=== PATIENT | female | born 1960 | race Caucasian/White ===

== ENCOUNTER 2016-10-26 13:54 | Emergency (ER) | payer OTHER ==
[~2016-10-26] VITALS: Ht 160 cm; Wt 72.6 kg
--- NOTE | 2016-10-26 14:45 | ED AMS/SEIZURE/WEAK/DIZZY ---
History of Present Illness General Chief Complaint: General Adult Stated Complaint: DIZZY, TIRED, PALPATATION EARLIER TODAY, X 1 DAY Source: patient Exam Limitations: no limitations Vital Signs & Intake/Output Vital Signs & Intake/Output Vital Signs Date Time Temp Pulse Resp B/P B/P Pulse O2 O2 Flow FiO2 Mean Ox Delivery Rate 10/26 1913 60 18 124/58 97 Room Air 10/26 1640 97.0 50 16 110/60 98 Room Air 10/26 1501 56 10/26 1500 97 Room Air 10/26 1407 98.6 76 18 114/73 98 Room Air ED Intake and Output 10/27 0000 10/26 1200 Intake Total Output Total Balance Patient 160 lb Weight Weight Reported by Patient Measurement Method Allergies Coded Allergies: Sulfa (Sulfonamide Antibiotics) (RASH 10/26/16) Reconcile Medications Pravastatin Sodium 20 MG TABLET 1 TAB PO DAILY CHOLESTEROL (Reported) Triage Note: 56 YO FEMALE TO TRIAGE C/O FEELING TIRED AND FEELING PALPITATIONS ON/OFF TODAY. DENIES CHEST PAIN. DENIES SOB. STATES SHE ALSO WAS FEELING LIGHTHEADED. Triage Nurses Notes Reviewed? yes Onset: Abrupt Duration: hour(s):, intermittent Timing: recent history Injury Environment: home Severity: mild, moderate No Modifying Factors: none HPI: 56-year-old female comes into emergency room with complaints of lightheaded and dizziness earlier today and some numbness and tingling in her hands bilaterally. Patient reports that when she lied down she felt like her heart was skipping a beat. Some mild chest tightness but denies any actual pain or shortness of breath. Patient reports that she was started on cholesterol medication a couple months ago. Denies headache. Denies vomiting. Denies any fever chills. (VERO LUNA) Past History Travel History Traveled to [place] past 21 day No Medical History Any Pertinent Medical History? 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 No (VERO LUNA) Review of Systems Review of Systems Constitutional: Reports: see HPI. EENTM: Reports: no symptoms. Respiratory: Reports: no symptoms. Cardiovascular: Reports: see HPI. GI: Reports: no symptoms. Genitourinary: Reports: no symptoms. Musculoskeletal: Reports: no symptoms. Skin: Reports: no symptoms. Neurological/Psychological: Reports: no symptoms. Hematologic/Endocrine: Reports: no symptoms. Immunologic/Allergic: Reports: no symptoms. All Other Systems: Reviewed and Negative (VERO LUNA) Physical Exam Physical Exam General Appearance: well developed/nourished, no apparent distress, alert Head: atraumatic, normal appearance Eyes: Bilateral: normal appearance, EOMI. 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 Yes CVA/TIA Diagnosis: No Severe Sepsis Present: No Septic Shock Present: No All Positive = PERC Ruled Out: Positive: heart rate < 100 bpm, O2 sat > 94%, no hemoptysis, no hormone use, no prior DVT or PE, no unilateral leg swellin, no surgery/trauma w/in 4w. Wells Criteria Score: 0 (VERO LUNA) Progress Differential Diagnosis: arrythmia, alcohol intoxication, anemia, benign positional vertigo, CVA/stroke, dehydration, drug intoxication, electrolyte imbalance, GI bleed, hypoglycemia, intracranial Hem., intracranial mass/tumor, labrynthitis, postural hypotension, sepsis, subarachnoid Hem. Plan of Care: Orders Procedure Date/time Status TROPONIN LEVEL 10/26 1900 Complete EKG 10/26 1900 Active Telemetry/911 Emergency Services Dispatcher 10/26 1445 Active TROPONIN LEVEL 10/26 1445 Complete COMPREHENSIVE METABOLIC PANEL 10/26 1445 Complete CBC WITHOUT DIFFERENTIAL 10/26 1445 Complete EKG 10/26 1417 Active Laboratory Tests 10/26/16 1905: Troponin I < 0.01 10/26/16 1455: Anion Gap 8, Estimated GFR > 60, BUN/Creatinine Ratio 18.6, Glucose 88, Calcium 9.3, Total Bilirubin 0.4, AST 20, ALT 37, Alkaline Phosphatase 76, Troponin I < 0.01, Total Protein 6.6, Albumin 4.1, Globulin 2.5, Albumin/Globulin Ratio 1.6, CBC w Diff NO MAN DIFF REQ, RBC 4.38, MCV 95.3, MCH 32.0 H, RDW 13.0, MPV 7.1 L, Gran % 58.3, Lymphocytes % 31.8, Monocytes % 6.3, Eosinophils % 3.0, Basophils % 0.6, Absolute Granulocytes 3.4, Absolute Lymphocytes 1.9, Absolute Monocytes 0.4, Absolute Eosinophils 0.2, Absolute Basophils 0, PUBS MCHC 33.6 Initial ED EKG: normal intervals, normal p-waves, normal sinus rhythm, rate (56) Repeat EKG: unchanged (VERO LUNA) Departure Departure Disposition: HOME OR SELF CARE Condition: Stable Clinical Impression Primary Impression: Atypical chest pain Secondary Impressions: Lightheadedness Referrals: PATIENT HAS NO PRIMARY CARE DR (PCP/Family) DAISY SCHMIDT PhD,LEXY Gar Additional Instructions: Follow-up with your primary care doctor. Return if any concerns worsening symptoms. Follow-up with etcher aircraft provided. Please go over all results of today's visit with your primary care doctor. Contact your primary care doctor to let them know you were here in the emergency room. There may be nonspecific findings which may not be related to your visit today here in the emergency room but may require further evaluation and chronic monitoring by your primary care doctor. If you had a laceration today the chance of foreign body always remains. You should follow-up with your primary care doctor for recheck in 3-5 days for a wound check. If you had an x-ray done there is a chance that a fracture could have been missed on initial read and you should follow-up with your primary care doctor for repeat x-rays if symptoms persist. If your blood pressure was elevated here in the emergency room please have rechecked by her primary care doctor within the next 48 hours by your primary care doctor. If you were prescribed a narcotic here in the emergency room or any type of controlled substances you're not allowed to drive while taking this medication or operate any type of heavy machinery. Narcotics can make you feel lightheaded dizziness nausea and can cause constipation. You may need to chart picker a stool softener. Thank you for choosing [facility] emergency room. Please return to the emergency room immediately if you have any other concerns worsening of symptoms. Departure Forms: Customer Survey General Discharge Information Comments 10/26/2016 8:16:15 PM Patient clinically looks well. In no apparent distress. Reevaluated multiple times. Patient continues to remain asymptomatic at this time. Repeat EKG unchanged and second troponin negative. Patient referred to etcher aircraft as well as primary care doctor. Return to the emergency room immediately if any other concerns worsening symptoms. Patient understands and agrees with plan of care. Symptoms are unclear at this time. Case discussed with Dr. Rose. No suspicion for pulmonary embolism. Low probability was criteria. (SIMONE HALL,VERO) PA/MUSHROOM GROWER Co-Sign Statement Statement: ED Attending supervision documentation- [] I saw and evaluated the patient. I have also reviewed all the pertinent lab results and diagnostic results. I agree with the findings and the plan of care as documented in the PA's/MUSHROOM GROWER's documentation. [X] I have reviewed the ED Record and agree with the PA's/MUSHROOM GROWER's documentation. [] Additions or exceptions (if any) to the PAs/MUSHROOM GROWER's note and plan are summarized below: [] (CINDY SCHMIDT,RADHA Harris)
[2016-10-26 15:14] LABS: ABSOLUTE BASOPHIL COUNT 0 /CUMM (0.0-0.2); ABSOLUTE EOSINOPHIL COUNT 0.2 /CUMM (0.0-0.7); ABSOLUTE GRANULOCYTE CT 3.4 /CUMM (1.4-6.5); ABSOLUTE LYMPH COUNT 1.9 /CUMM (1.2-3.4); ABSOLUTE MONOCYTE COUNT 0.4 /CUMM (0.10-0.60); BASOPHIL % 0.6 % (0.0-2.0); GRANULOCYTE % 58.3 % (42.2-75.2); HEMATOCRIT 41.7 % (37-47); MEAN CORPUSCULAR HGB CONC 33.6 G/DL (33.0-37.0); MEAN CORPUSCULAR VOLUME 95.3 FL (81.0-99.0); MEAN PLATELET VOLUME 7.1 FL (7.4-10.4); PLATELET COUNT 252 /CUMM (130-400); RED BLOOD CELL CT 4.38 /CUMM (4.20-5.40); WHITE BLOOD CELL COUNT 5.8 /CUMM (4.8-10.8)
[2016-10-26] MEDS ORDERED: PRAVASTATIN SOD20 M2 PO (17:04)
[2016-10-26 19:13] VITALS: BP 124/58
== END 2016-10-26 20:42 ==
LOC: ERH 13:54
PROVIDERS: Physician Assistant Medical
DX: R07.89 Other chest pain (principal); R42 Dizziness and giddiness
CPT/HCPCS: 93005; 93010